=== PATIENT | female | born 1980 | race African-American/Black ===

== ENCOUNTER 2020-12-02 09:27 | Emergency (ER) | payer MEDICAID ==
[~2020-12-02] VITALS: Ht 144.8 cm; Wt 72.0 kg
[~2020-12-02 09:27] MED LIST: ALBU2.5V8 IH; AMIT50TA PO; LISI1TAB20 PO; cholesterol med PO
--- NOTE | 2020-12-02 09:50 | PHYS DOC ---
Past Medical History Past Medical History: Arthritis, Asthma, Hypertension, Migraines, Other Additional Past Medical Histor: restless leg syndrome, ectopic x2, chronic pain Past Surgical History: Tubal ligation Additional Past Surgical Histo: etopic Smoking Status: Current Every Day Smoker Alcohol Use: Occasionally Drug Use: Cocaine, Marijuana Adult General Chief Complaint Chief Complaint: HEADACHE [facility] HPI Patient is a 40 year old female who presents with migraine. Patient has been having headache over the last 2 days. She reports pain over the right temporal area. She has history of headaches and she reports this 1 to be very similar. She takes amitriptyline at home but does not have any rescue medications. No nausea or vomiting. No vision changes. No fever or rashes. No neck stiffness. No other complaints today. Review of Systems Review of Systems Constitutional: Denies fever or chills Eyes: Denies change in visual acuity, redness, or eye pain HENT: Denies nasal congestion or sore throat Respiratory: Denies cough or shortness of breath Cardiovascular: No additional information not addressed in HPI GI: Denies abdominal pain, nausea, vomiting, bloody stools or diarrhea : Denies dysuria or hematuria Musculoskeletal: Denies back pain or joint pain Integument: Denies rash or skin lesions Neurologic: as documented in HPI All other systems were reviewed and found to be within normal limits, except as documented in this note. Current Medications Current Medications Current Medications Medications (Trade) Dose Ordered Sig/Adam Start Time Stop Time Status Last Admin Dose Admin Diphenhydramine HCl (Benadryl) 25 mg 1X ONCE 12/02/20 10:00 12/02/20 10:09 DC 12/02/20 10:34 25 MG Ketorolac Tromethamine (Toradol 30mg Vial) 30 mg 1X ONCE 12/02/20 10:00 12/02/20 10:09 DC 12/02/20 10:35 30 MG Prochlorperazine Edisylate (Compazine) 10 mg 1X ONCE 12/02/20 10:00 12/02/20 10:09 DC 12/02/20 10:34 10 MG Sodium Chloride 1,000 ml @ 1,000 mls/hr 1X ONCE 12/02/20 10:00 12/02/20 10:59 DC 12/02/20 10:33 1,000 MLS/HR Allergies Allergies Allergies Coded Allergies Type Severity Reaction Last Updated Verified shellfish derived Allergy Severe Swelling 12/17/14 Yes Physical Exam Physical Exam Constitutional: Well developed, well nourished, no acute distress, non-toxic appearance. HENT: Normocephalic, atraumatic, bilateral external ears normal, oropharynx moist, no oral exudates, nose normal. Eyes: PERRLA, EOMI, conjunctiva normal, no discharge. Neck: Normal range of motion, no tenderness, supple, no stridor. Cardiovascular:Heart rate regular rhythm, no murmur Lungs & Thorax: Bilateral breath sounds clear to auscultation Abdomen: Bowel sounds normal, soft, no tenderness Skin: Warm, dry, no erythema Back: Normal ROM Extremities: No tenderness, no cyanosis, no clubbing, ROM intact, no edema. Neurologic: Alert and oriented X 3, normal motor function, normal sensory function, no focal deficits noted. Psychologic: Affect normal Current Patient Data Vital Signs Vital Signs Date Time Temp Pulse Resp B/P (MAP) Pulse Ox O2 Delivery O2 Flow Rate FiO2 12/02/20 09:47 97.9 89 16 103/64 (77) 99 Room Air 97.9 EKG EKG [] Radiology/Procedures Radiology/Procedures [] Course & Med Decision Making Course & Med Decision Making Pertinent Labs and Imaging studies reviewed. (See chart for details) Seen and examined on arrival to her room. Normal neurologic exam. Headache is described to be typical for her normal migraine syndrome. Today, no indication for CT scan. Will place IV and give standard medications. 11:00: Patient currently sleeping. Arouses easily. Headache is much improved. Tolerating p.o. Stable for discharge home. She is given prescription for Fioricet to help with her headaches at home and recommended to continue to take her prophylactic medications daily. Follow-up with primary care doctor. Come back to the ER for any new or worsening symptoms. Dragon Disclaimer Dragon Disclaimer This electronic medical record was generated, in whole or in part, using a voice recognition dictation system. Departure Departure Disposition: HOME / SELF CARE / HOMELESS Condition: IMPROVED Referrals: JEANETTE HO (PCP) Patient Instructions: Migraine Headache DAVID HOLGUIN DO Dec 02, 2020 09:49
[2020-12-02] MEDS ORDERED: KETOROLAC 30 MG/ML VIAL. IVP ONE (10:00)
[2020-12-02] MEDS ORDERED: IV NORMAL SALINE 1000ML BAG 1,000 ML IV ONE (10:00)
[2020-12-02] MEDS ORDERED: PROCHLORPERAZINE 10 MG/2 ML VIAL. IV ONE (10:00)
[2020-12-02] MEDS ORDERED: diphenhydrAMINE 50 MG/ML VIAL IVP ONE (10:00)
[2020-12-02 11:00] VITALS: BP 105/71
[2020-12-02] MEDS ORDERED: BUTA1TAB23 PO (11:04)
== END 2020-12-02 11:18 | disposition home or self-care (01) ==
LOC: ER 09:27
DX: G43.909 Migraine, unspecified, not intractable, without status migrainosus (principal); J45.909 Unspecified asthma, uncomplicated; I10 Essential (primary) hypertension; G89.29 Other chronic pain; G25.81 Restless legs syndrome; F17.200 Nicotine dependence, unspecified, uncomplicated; Z91.013 Allergy to seafood
CPT/HCPCS: 96374; 96375; 99284; J0780; J1200; J1885; J7030